=== PATIENT | male | born 1945 | race Caucasian/White ===

== ENCOUNTER → 2017-12-07 | Outpatient (REF) ==
[2017-12-07 18:46] LABS: THYROID STIMULATING HORMONE 2.32 uIU/mL (0.465-4.680)
[2017-12-07 19:29] LABS: PSA-TOTAL 2.63 ng/mL (0-4)
== END ==
LOC: ZLAB.WCH 17:56
PROVIDERS: Internal Medicine
DX: Z01.89 Encounter for other specified special examinations (principal)
CPT/HCPCS: G0103

== ENCOUNTER → 2018-09-16 | Outpatient (REF) | LOC: ZLAB.WCH 16:01 | DX: Z01.89 Encounter for other specified special examinations (principal) ==